=== PATIENT | male | born 1990 | race African-American/Black ===

== ENCOUNTER 2021-02-15 00:36 | Emergency (ER) | payer OTHER ==
[~2021-02-15] VITALS: Ht 180.3 cm; Wt 100.0 kg
--- NOTE | 2021-02-15 00:50 | NUR ---
patient flew back to [place] last week on [birth year] and started to feel like crap and flew back 2 days ago picked upa a truck in [place] and is now here
[2021-02-15 01:06] LABS: BASOPHILS % (AUTO) 0.5 % (0-1); EOSINOPHILS # (AUTO) 0.2 X10'3 (0-0.9); EOSINOPHILS % (AUTO) 2.1 % (0-6); HEMATOCRIT 44.7 % (42.0-52.0); HEMOGLOBIN 14.8 g/dl (14.0-17.9); LYMPHOCYTES # (AUTO) 1.2 X10'3 (1.1-4.8); LYMPHOCYTES % (AUTO) 15.4 % (21-51); MEAN CORPUSCULAR HEMOGLOBIN 29.7 PG (27.0-31.0); MEAN CORPUSCULAR HGB CONC 33.1 g/dL (33.0-36.5); MEAN CORPUSCULAR VOLUME 89.8 FL (78-98); MONOCYTES # (AUTO) 0.5 X10'3 (0-0.9); MONOCYTES % (AUTO) 6.4 % (2-12); NEUTROPHILS # (AUTO) 5.7 X10'3 (1.8-7.7); NEUTROPHILS % (AUTO) 75.6 % (42-75); PLATELET COUNT 320 X10'3 (140-440); RED BLOOD COUNT 4.98 X10'6 (4.70-6.10); WHITE BLOOD COUNT 7.5 X10'3 (4.5-11.0)
[2021-02-15 01:29] LABS: ALANINE AMINOTRANSFERASE 30 U/L (12-78); ALBUMIN 3.7 G/DL (3.4-5.0); ALBUMIN/GLOBULIN RATIO 0.9 (1.1-1.5); ALKALINE PHOSPHATASE 83 IU/L (46-116); ANION GAP 10 (8-16); ASPARTATE AMINO TRANSFERASE 15 U/L (10-37); BILIRUBIN,TOTAL 0.3 MG/DL (0.1-1.0); BLOOD UREA NITROGEN 8 MG/DL (7-18); BUN/CREATININE RATIO 6.4 (5.4-32.0); CALCIUM 8.7 MG/DL (8.5-10.1); CHLORIDE 105 MMOL/L (99-107); CREATININE 1.25 MG/DL (0.60-1.10); GLUCOSE 108 MG/DL (70-104); LIPASE 55 U/L (73-393); MAGNESIUM 1.9 MG/DL (1.5-2.4); POTASSIUM 4.2 MMOL/L (3.5-5.1); SODIUM 140 MMOL/L (135-145); TOTAL CARBON DIOXIDE 24.9 MMOL/L (24-32); TROPONIN I < 0.04 NG/ML (0.0-0.05); eGFR 82 ML/MIN
[2021-02-15] MEDS ORDERED: normal saline 1000ML IV soln IVB ONE ×2 (01:35→02:00)
[2021-02-15] MEDS ORDERED: ondansetron/PF 4mg/2ml inj IV ONE (01:35)
--- NOTE | 2021-02-15 01:55 | NUR ---
patietn ambulated to bathroom with standby assist. patietn had about 300 ml of lquid quiñonez stool, stool sent for c dif
--- NOTE | 2021-02-15 02:08 | NUR ---
to ct scan
[2021-02-15 02:46] LABS: OCCULT BLOOD STOOL NEGATIVE (Neg)
[2021-02-15] MEDS ORDERED: METR500T PO (03:10)
[2021-02-15] MEDS ORDERED: CIPR-259 PO (03:10)
[2021-02-15] MEDS ORDERED: ONDA4TAB6 PO (03:10)
[2021-02-15] MEDS ORDERED: ipratropium/albuterol 3ml nebule NEB ONE (03:25)
--- NOTE | 2021-02-15 03:30 | NUR ---
Pt requesting a breathing tx before discharge. Pt currently 99% on RA with no observed resp distress.
[2021-02-15 03:43] VITALS: BP 103/62
--- NOTE | 2021-02-15 04:10 | NUR ---
Nurse was called to the lobby for recently discharged patient that stated he felt like he wasn't treated appropriately due to racism. Nurse went to lobby to re-educate patient on discharge instructions and also give reassurance to the care that was given during ER visit. Pt remained agitated and resistive to care. Nurse explained multiple times to patient and mother on iPhone FaceTime concerning care given. After observed increased agitation and resitance to nurse reassurance. Nurse informed charge nurse of situation.
[2021-02-15 09:13] LABS: C DIFF ANTIGEN NEGATIVE (NEGATIVE); C DIFF SPECIMEN=DIARRHEA? ACCEPTABLE; C DIFFICILE TOXINS A&B NEGATIVE (Neg)
== END 2021-02-15 03:49 | disposition home or self-care (01) ==
LOC: ER 00:37
DX: K52.9 Noninfective gastroenteritis and colitis, unspecified (principal); Z20.822 Contact with and (suspected) exposure to COVID-19; J45.909 Unspecified asthma, uncomplicated; Z79.899 Other long term (current) drug therapy
CPT/HCPCS: 36415; 74176; 80053; 82272; 83605; 83690; 83735; 84484; 85025; 87324; 87449; 87635; 94640; 96361; 96374; 99284; C9803; J2405; J7030; 94760